=== PATIENT | female | born 1960 | race Caucasian/White ===

== ENCOUNTER 2018-08-19 17:27 | Emergency (ER) | payer OTHER, SELFPAY ==
[2018-08-19 17:31] VITALS: BP 126/64; PULSE 71; RESP 20; TEMP 36.5; O2SAT 97
--- NOTE | 2018-08-19 17:40 | DI.RAD_ITS ---
SYMPTOMS/DIAGNOSIS: PAIN S/P FALL RIGHT ANKLE: There is mild soft tissue swelling over the lateral malleolus. There is no evidence of a fracture or dislocation.
--- NOTE | 2018-08-19 17:41 | W.ED.GENAD ---
Discharge Plan Disposition Patient Disposition: HOME Condition: Stable Discharge Details Chief Complaint: Orthopedic Clinical Impression: Right ankle sprain Primary Care Provider: Parker Al ED Provider: Reji Wright Home Meds and New Rx's Prescriptions: No Action No Known Home Meds RF: 0 Discharge Instructions Instructions: Ankle Sprain (ED) Medical Decision Making PAtient here after she slipped on a step and inverted her right ankle and has pain over the right lateral malleolus. Denies hitting head or loc or precediing symptoms to the fall. HAs normal sensation and no pain over metatarsals, 2+ dp/pt pulses. Will xray to eval for fx. xray negative on my read, suspect sprain. If vrady doesn't see any fracture will treat as sprain Differential Diagnosis right ankle sprain vs fracture vs contusion Imaging Data Radiologic Study: Attestation: I personally reviewed and interpreted this imaging study as follows: Imaging: X-Ray My impression: no acute fractures HPI General Mode of arrival: wheelchair. Date/Time Provider Initiated Documentation: 08/19/18 17:37. Limitations to Documentation: no limitations. Information obtained by: patient. History of Present Illness 57 year old F presents to the emergency department with the chief complaint of right ankle pain, described as moderate, with intensity rated at 6. Quality is described as aching, and is localized to the right and lower extremity. Patient reports no radiation. Patient started experiencing this hour(s) (1) and it has been constant. Rest improves symptom(s), Movement worsens symptoms . Patient notes no other symptoms.. Patient did receive the following treatments prior to arrival, none Related Data Home Medications Medication Instructions Recorded Confirmed Unknown [No Known Home Meds] 08/19/18 08/19/18 Allergies Allergy/AdvReac Type Severity Reaction Status Date / Time No Known Allergies Allergy Unverified 08/19/18 17:33 General Stated Complaint: Orthopedic GREGORY: 3 Review of Systems Review of Systems All systems reviewed & are unremarkable except as noted in HPI and below Constitutional Denies chills, Denies fever(s) and Denies weakness Eyes Denies loss of vision ENT Denies change in voice Cardiovascular Denies chest pain and Denies dyspnea Respiratory Denies dyspnea Gastrointestinal Denies abdominal pain, Denies nausea and Denies vomiting Genitourinary Denies dysuria Musculoskeletal Denies joint swelling Integumentary/Breasts Denies rash Neurologic Denies loss of vision and Denies weakness Psychiatric Denies depression Allergic/Immunologic Denies urticaria PFSH Social History Smoking/Tobacco Use Status: Never Exam Const General: no acute distress Orientation: alert HENMT Head: normal to inspection Ears: external ears normal General nose exam: external nose normal Mouth: moist mucous membranes Eyes General: appearance normal, both eyes and all related structures Neck Neck: normal visual inspection Resp Effort & Inspection: normal respiratory effort and able to speak in complete sentences Cardio Rate: regular rate Skin General skin exam: no rashes or lesions noted Neuro General: alert and oriented x3 Extrem General: normal capillary refill Psych Mental Status: mental status grossly normal Course Vital Signs Temperature 36.5 C 08/19/18 17:31 Pulse 71 08/19/18 17:31 Respiratory Rate 20 08/19/18 17:31 Blood Pressure 126/64 08/19/18 17:31 Pulse Oximetry 97 08/19/18 17:31 Temperature 36.5 C 08/19/18 17:31 Temperature Source Temporal Artery Scan 08/19/18 17:31 Pulse 71 08/19/18 17:31 Respiratory Rate 20 08/19/18 17:31 Respiratory Effort Non-Labored 08/19/18 17:31 Blood Pressure 126/64 08/19/18 17:31 Pulse Oximetry 97 08/19/18 17:31 Oxygen Delivery Method Room Air 08/19/18 17:31 Oxygen Flow Rate 0 08/19/18 17:31 Pain Level 8 08/19/18 17:33
--- NOTE | 2018-08-19 17:44 | ED.GENADUL_ITS ---
Discharge Plan Disposition Patient Disposition: HOME Condition: Stable Discharge Details Chief Complaint: Orthopedic Clinical Impression: Right ankle sprain Primary Care Provider: Parker Al ED Provider: Reji Wright Home Meds and New Rx's Prescriptions: No Action No Known Home Meds RF: 0 Discharge Instructions Instructions: Ankle Sprain (ED) Medical Decision Making PAtient here after she slipped on a step and inverted her right ankle and has pain over the right lateral malleolus. Denies hitting head or loc or precediing symptoms to the fall. HAs normal sensation and no pain over metatarsals, 2+ dp/ pt pulses. Will xray to eval for fx. xray negative on my read, suspect sprain. If vrady doesn't see any fracture will treat as sprain Differential Diagnosis right ankle sprain vs fracture vs contusion Imaging Data Radiologic Study: Attestation: I personally reviewed and interpreted this imaging study as follows: Imaging: X-Ray My impression: no acute fractures HPI General Mode of arrival: wheelchair . Date/Time Provider Initiated Documentation: 08/19/18 17:37 . Limitations to Documentation: no limitations . Information obtained by: patient . History of Present Illness 57 year old F presents to the emergency department with the chief complaint of right ankle pain, described as moderate, with intensity rated at 6. Quality is described as aching, and is localized to the right and lower extremity. Patient reports no radiation. Patient started experiencing this hour(s) (1) and it has been constant. Rest improves symptom(s), Movement worsens symptoms . Patient notes no other symptoms.. Patient did receive the following treatments prior to arrival, none Related Data Home Medications Medication Instructions Recorded Confirmed Unknown [No Known Home Meds] 08/19/18 08/19/18 Allergies Allergy/AdvReac Type Severity Reaction Status Date / Time No Known Allergies Allergy Unverified 08/19/18 17:33 General Stated Complaint: Orthopedic GREGORY: 3 Review of Systems Review of Systems All systems reviewed & are unremarkable except as noted in HPI and below Constitutional Denies chills, Denies fever(s) and Denies weakness Eyes Denies loss of vision ENT Denies change in voice Cardiovascular Denies chest pain and Denies dyspnea Respiratory Denies dyspnea Gastrointestinal Denies abdominal pain, Denies nausea and Denies vomiting Genitourinary Denies dysuria Musculoskeletal Denies joint swelling Integumentary/Breasts Denies rash Neurologic Denies loss of vision and Denies weakness Psychiatric Denies depression Allergic/Immunologic Denies urticaria PFSH Social History Smoking/Tobacco Use Status: Never Exam Const General: no acute distress Orientation: alert HENMT Head: normal to inspection Ears: external ears normal General nose exam: external nose normal Mouth: moist mucous membranes Eyes General: appearance normal, both eyes and all related structures Neck Neck: normal visual inspection Resp Effort & Inspection: normal respiratory effort and able to speak in complete sentences Cardio Rate: regular rate Skin General skin exam: no rashes or lesions noted Neuro General: alert and oriented x3 Extrem General: normal capillary refill Psych Mental Status: mental status grossly normal Course Vital Signs Temperature 36.5 C 08/19/18 17:31 Pulse 71 08/19/18 17:31 Respiratory Rate 20 08/19/18 17:31 Blood Pressure 126/64 08/19/18 17:31 Pulse Oximetry 97 08/19/18 17:31 Temperature 36.5 C 08/19/18 17:31 Temperature Source Temporal Artery Scan 08/19/18 17:31 Pulse 71 08/19/18 17:31 Respiratory Rate 20 08/19/18 17:31 Respiratory Effort Non-Labored 08/19/18 17:31 Blood Pressure 126/64 08/19/18 17:31 Pulse Oximetry 97 08/19/18 17:31 Oxygen Delivery Method Room Air 08/19/18 17:31 Oxygen Flow Rate 0 08/19/18 17:31 Pain Level 8 08/19/18 17:33
[2018-08-19] MEDS: Ibuprofen 600 MG TAB (18:15)
--- NOTE | 2018-08-19 18:53 | DI.VRAD_ITS ---
EXAM: XR Right Ankle Complete, 3 or more Views EXAM DATE/TIME: 08/19/2018 5:42 PM CLINICAL HISTORY: 57 years old, female; Signs and symptoms; Other: Pain S/P fall TECHNIQUE: XR Right ankle 3 or more views. COMPARISON: No relevant prior studies available. FINDINGS: Bones/joints: No acute fracture. No dislocation. Degenerative changes in the tarsal bones Soft tissues: Lateral malleolar soft tissue swelling.. IMPRESSION: 1. Lateral malleolar soft tissue swelling.. 2. No acute fracture. 3. No dislocation. Dictated and Authenticated by: Leann Kiran MD. Ordering:BRENT ADAMS MD
== END 2018-08-19 19:06 | disposition home or self-care (01) ==
PROVIDERS: Emergency Provider Emergency Medicine; PCP Nurse Practitioner
DX: S93.401A Sprain of unspecified ligament of right ankle, initial encounter (principal); W10.8XXA Fall (on) (from) other stairs and steps, initial encounter
CPT/HCPCS: 29515; 99283; 73610; 99282; L1902

== ENCOUNTER 2020-03-03 18:54 | Emergency (ER) | payer OTHER, SELFPAY ==
[2020-03-03 18:58] VITALS: BP 155/77; PULSE 98; RESP 16; TEMP 36.7; O2SAT 98
--- NOTE | 2020-03-03 19:03 | ED.GENADUL_ITS ---
Discharge Plan Disposition Patient Disposition: HOME Condition: Stable Discharge Details Chief Complaint: EyeProblem Clinical Impression: Abrasion, corneal Primary Care Provider: Parker Al ED Provider: Brittani Turner Home Meds and New Rx's Prescriptions: New erythromycin 5 mg/gram (0.5 %) ointment 0.5 inch OP Q4H 7 Days Qty: 3.5 RF: 1 Discharge Instructions Instructions: Corneal Abrasion (ED) Additional Instructions: Use antibiotic eye ointment every 4 hours while awake as discussed for 1 week. Cool compresses if needed for comfort. Tylenol for comfort if needed. Sunglasses for comfort. Follow-up with [facility] care if not improving in 2 days or for reevaluation if desired. Return if needed sooner for any vision change, blurred vision, worsening eye p ain or concerns if needed. Referrals: [facility] [Outside] Medical Decision Making Is a 59-year-old patient presenting for acute right eye injury. Patient was trimming bushes and she had a branch strike her in the right eye. Patient reports immediate discomfort. Patient denies any vision change or blurred vision. Patient does report a very minimal 1 out of 10 headache and very mild nausea which she attributes to pain. Patient did report initially mild hearing and nasal congestion which has since improved. Patient does report mild foreign body sensation and right eye discomfort. Visual acuity reveals right eye 20/100, left 20/70. This is uncorrected as patient is not currently wearing her glasses. Patient reports this seems normal in her baseline. Patient had full resolution of pain with application of tetracaine topically. Is no identifiable foreign body in the eye. Patient does have obvious fluorescein dye uptake consistent with corneal abrasion. This is somewhat overlying her iris but not central over her pupil. Will apply topical antibiotics, provide dose here. Discussed use of antibiotic, conservative and supportive management. [facility] any persistence of pain lasting greater than 2 days and for follow-up to be sure abrasion has entirely improved patient presents plan of care. The patient was stable and requested discharge. Prior to discharge, my usual and customary return precautions were reviewed with the patient - this included follow-up instructions and reasons to return to the Emergency Department if conditions worsens, does not improve as expected, or other new concerns arise. HPI General Date/Time Provider Initiated Documentation: 03/03/20 18:55 . HPI Narrative: 59-year-old patient presents to the emergency room with complaints of right eye pain. Patient reports 1 hour prior to arrival she was trimming bushes and a thin branch of a pricker alvarez flung toward her and struck her right eye. Patient reports immediate discomfort. Patient reports some tearing and nasal discharge which has improved. Patient reports pain persists. Denies obvious vision change, blurred vision or double vision. Patient does report mild nausea and 1 out of 10 headache which she tributes discomfort. Patient denies use of blood thinner. Patient denies any other sites of pain or concerns. Patient does report a mild foreign body sensation. Denies any underlying eye problems. No other concerns or complaints at this time. Denies dizziness denies paresthesia, denies sore throat, nasal congestion, hearing change, discharge from the eye. Denies fevers or chills. Related Data Home Medications Medication Instructions Recorded Confirmed erythromycin 0.5 inch OP Q4H 7 Days #3.5 gm 03/03/20 Previous Rx's Medication Instructions Recorded erythromycin 0.5 inch OP Q4H 7 Days #3.5 gm 03/03/20 Allergies Allergy/AdvReac Type Severity Reaction Status Date / Time No Known Allergies Allergy Unverified 08/19/18 17:33 General Stated Complaint: EyeProblem GREGORY: 4 Review of Systems All systems reviewed & are unremarkable except as noted in HPI and below Eyes Eyes: Denies blind spots, Denies change in vision, Denies itchy eyes and Denies loss of vision Neurologic Neurologic: Denies loss of vision Allergic/Immunologic Allergic/Immunologic: Denies itchy eyes [facility] Social History Smoking/Tobacco Use Status: Never Drug use: Never Do you feel safe in your relationship?: Yes Exam Narrative Exam Narrative: CONST: Healthy appearing patient, in no acute distress. Well hydrated. Alert and oriented. HENMT: Head nomocephalic, normal to inspection. Atraumatic. Hearing grossly normal. EYES: General normal appearance. Alignment normal. Eyelids normal. Conjunctiva normal. PERRLA. Extraocular motions intact. No obvious foreign body identified beneath upper or lower lid. No obvious embedded foreign body. Patient with fluorescein dye uptake consistent with corneal abrasion noted small punctate area at approximately 3:00 to the and a linear abrasion noted overlying the iris at approximately 8-9 o'clock. Negative Chantell sign. funduscopic exam somewhat limited as patient is not dilated however does appear normal. NECK: Normal visual inspection. FROM. CHEST: Normal insepection of the chest. RESP: Normal respiratory effort. Speaking full sentences. No cough. No audible wheezing. No retractions. CARDIO: No JVD. SKIN: Normal. Dry. No rashes. NEURO: Alert and awake. Speech clear. PSYCH: Normal affect. Cooperative. Course Vital Signs Vital signs: Vital Signs Temperature 36.7 C 03/03/20 18:58 Pulse 98 H 03/03/20 18:58 Respiratory Rate 16 03/03/20 18:58 Blood Pressure 155/77 H 03/03/20 18:58 Pulse Oximetry 98 03/03/20 18:58 Temperature 36.7 C 03/03/20 18:58 Temperature Source Temporal Artery Scan 03/03/20 18:58 Pulse 98 H 03/03/20 18:58 Respiratory Rate 16 03/03/20 18:58 Respiratory Effort 03/03/20 19:01 Blood Pressure 155/77 H 03/03/20 18:58 Pulse Oximetry 98 03/03/20 18:58 Oxygen Delivery Method Room Air 03/03/20 18:58 Oxygen Flow Rate 0 03/03/20 18:58 Pain Level 1 03/03/20 18:58
[2020-03-03] MEDS: Tetracaine 0.5% 4 ML BTL OP (19:30)
[2020-03-03] MEDS: Erythromycin Ophth Oint 3.5 GM TUBE OU (19:30)
[2020-03-03] MEDS: Fluorescein STRIPS 100/BOX 1 MG OP (19:30)
[2020-03-03] MEDS: Balanced Salt Solution 15 ML BTL (19:31)
== END 2020-03-03 19:40 | disposition home or self-care (01) ==
PROVIDERS: Emergency Provider Physician Assistant; PCP Nurse Practitioner
DX: S05.01XA Injury of conjunctiva and corneal abrasion without foreign body, right eye, initial encounter (principal); W20.8XXA Other cause of strike by thrown, projected or falling object, initial encounter
CPT/HCPCS: 99283

== ENCOUNTER 2020-07-07 03:16 | Emergency (ER) | payer OTHER, SELFPAY ==
[2020-07-07 03:21] VITALS: BP 140/80; PULSE 78; RESP 16; TEMP 36.4; O2SAT 95
--- NOTE | 2020-07-07 03:22 | ED.GENADUL_ITS ---
Discharge Plan Disposition Patient Disposition: HOME Condition: Stable Discharge Details Chief Complaint: EyeProblem Clinical Impression: Abrasion of cornea, right Primary Care Provider: Parker Al ED Provider: Reji Wright Home Meds and New Rx's Prescriptions: No Action No Known Home Meds RF: 0 Discharge Instructions Instructions: Corneal Abrasion (ED) Additional Instructions: if you are not improving in 2-3 days follow up with your fruit or nut grower if you have severe worsening pain, decreased vision or fevers return to the emergency department Medical Decision Making 59 yo female states she went to bed feeling well and woke up and noticed her right eye had a burning sensation. Denies known trauma, fevers, and denies blurred vision or deep eye pain. Has no periorbital swelling, perrl, eomi. Has mild erythema of the conjunctiva or the right eye, left conjunctiva normal. Will place tetracaine and perform more detailed exam with fluorescein. 20/40 vision uncorrected in right eye and 20/30 in left eye no foreign body seen and none on undersurface of eyelids. Retina appears normal on exam. Had near immmediate relief of pain with application of tetracaine. On fluorescein staining has a very small corneal abrasion at the 3 oclock position of the conjunctiva otherwise unremarkable. Will place on erythromycin ointment and advised if she's not improving in 2-3 days to follow up with her fruit or nut grower of [facility] with return precautions given Differential Diagnosis Differential Diagnosis: conjunctivitis, corneal abrasion HPI General Mode of arrival: ambulatory . Date/Time Provider Initiated Documentation: 07/07/20 03:17 . Limitations to Documentation: no limitations . Information obtained by: patient . History of Present Illness 59 year old F presents to the emergency department with the chief complaint of right eyburning sensation, described as moderate, Patient started experiencing this hour(s) (2) and it has been constant. No relieving factors improve symptom(s), No exacerbating factors reported . Patient did receive the following treatments prior to arrival, none Related Data Home Medications Medication Instructions Recorded Confirmed Unknown [No Known Home Meds] 07/07/20 07/07/20 Allergies Allergy/AdvReac Type Severity Reaction Status Date / Time No Known Allergies Allergy Unverified 07/07/20 03:26 General GREGORY: 4 Review of Systems All systems reviewed & are unremarkable except as noted in HPI and below Constitutional Constitutional: Denies chills, Denies fever(s) and Denies weakness Cardiovascular Cardiovascular: Denies chest pain and Denies dyspnea Respiratory Respiratory: Denies cough and Denies dyspnea Gastrointestinal Gastrointestinal: Denies abdominal pain, Denies nausea and Denies vomiting Musculoskeletal Musculoskeletal: Denies joint swelling Integumentary/Breasts Skin/Breast: Denies rash Neurologic Neurologic: Denies weakness [facility] Medical History (Updated 07/07/20 @ 03:37 by Reji Wright MD) No acute medical problems Social History Smoking/Tobacco Use Status: Never Drug use: Never Do you feel safe in your relationship?: Yes Exam Const General: no acute distress Orientation: alert HENMT Head: normal to inspection Ears: external ears normal General nose exam: external nose normal Mouth: moist mucous membranes Eyes Alignment and Position: alignment normal Neck Neck: normal visual inspection Resp Effort & Inspection: normal respiratory effort and able to speak in complete sentences Cardio Rate: regular rate Skin General skin exam: no rashes or lesions noted Neuro General: patient alert and patient oriented x3 Extrem General: normal to inspection Psych Mental Status: mental status grossly normal
[2020-07-07] MEDS: Balanced Salt Solution 15 ML BTL OP (03:41)
[2020-07-07] MEDS: Tetracaine 0.5% 4 ML BTL OP (03:45)
[2020-07-07] MEDS: Erythromycin Ophth Oint 3.5 GM TUBE OP (03:45)
[2020-07-07] MEDS: Fluorescein STRIPS 100/BOX 1 MG (03:45)
== END 2020-07-07 03:44 | disposition home or self-care (01) ==
PROVIDERS: Emergency Provider Emergency Medicine; PCP Nurse Practitioner
DX: S05.01XA Injury of conjunctiva and corneal abrasion without foreign body, right eye, initial encounter (principal); X58.XXXA Exposure to other specified factors, initial encounter
CPT/HCPCS: 99283

== ENCOUNTER 2022-07-15 07:56 | Emergency (ER) | payer OTHER, SELFPAY ==
[2022-07-15 08:00] VITALS: BP 158/89; PULSE 97; RESP 18; TEMP 37.1; O2SAT 98
[2022-07-15] MEDS: Balanced Salt Solution 15 ML BTL (08:20)
[2022-07-15] MEDS: Fluorescein STRIPS 100/BOX 1 MG (08:20)
--- NOTE | 2022-07-15 08:24 | ED.GENADUL_ITS ---
Discharge Plan Disposition Patient Disposition: HOME Condition: Stable Discharge Details Clinical Impression: Impetigo Primary Care Provider: Unknown,Unknown ED Provider: Shira Cordova Home Meds and New Rx's Prescriptions: New cephalexin 500 mg capsule 500 mg PO Q6H 10 Days Qty: 40 0RF Discharge Instructions Instructions: Impetigo (ED) Additional Instructions: take antibiotics as prescribed yogurt daily while on antibiotics this is contagious, wash hands frequently and refrain from rubbing lesions likely 48 hours for notable improvement return with significant spreading rash, fever, eye pain, or with any new or worsening complaints Discharge Data Discharge Date/Time-TO BE ENTERED AT DEPARTURE: 07/15/22 08:32 Medical Decision Making appears infections/impetigo will treat with keflex recheck in 24-48 hours recommended return precautions discussed and pt expressed understanding HPI General Date/Time Provider Initiated Documentation: 07/15/22 08:01 . HPI Narrative: This 61-year-old female presents with rash on her lower lip that started on Saturday of last week. She states that its progressed over the past week and she now has some redness around her left eye. She denies any sensation of pain to her globe. She denies any drainage. She denies any fever or chills. She denies any known sick contacts. She denies her history of similar symptoms in the past. States that she did have a history of shingles and this presentation to her. She denies any difficulty swallowing, vision change, headache, or any additional complaints at this time. She is otherwise reportedly Related Data Home Medications Medication Instructions Recorded Confirmed cephalexin 500 mg capsule 500 mg PO Q6H 10 days #40 caps 07/15/22 Previous Rx's Medication Instructions Recorded cephalexin 500 mg capsule 500 mg PO Q6H 10 days #40 caps 07/15/22 Allergies Allergy/AdvReac Type Severity Reaction Status Date / Time No Known Allergies Allergy Unverified 07/15/22 08:04 General Stated Complaint: RashLesion GREGORY: 3 Review of Systems All systems reviewed & are unremarkable except as noted in HPI and below PFSH All Active Problems (Updated 07/15/22 @ 08:26 by GILMAR Roca) Impetigo (Acute) Medical History (Updated 07/15/22 @ 08:26 by GILMAR Roca) No acute medical problems Social History Smoking/Tobacco Use Status: Never Smoking risk assessment performed?: Yes Alcohol Intake: current Alcohol Intake frequency: a few times a month Alcohol type: wine Drug use: Never Substance use type: does not use Do you feel safe at home: Yes Do you feel safe in your relationship?: Yes Exam Const General: cooperative, comfortable and no acute distress [facility] Nose image: 1. honey crusted lesions 2. 3. Other: no rashes or lesions to intraoral region Eyes Other: left eye stained with fluorescein, no dendrite visualized EOMI Eyes/upper lids images: 1. erythema with superficial tenderness no crepitus or proptosis Course Vital Signs Vital signs: Vital Signs Temperature 37.1 C 07/15/22 08:00 Pulse 97 H 07/15/22 08:00 Respiratory Rate 18 07/15/22 08:00 Blood Pressure 158/89 H 07/15/22 08:00 Pulse Oximetry 98 07/15/22 08:00 Temperature 37.1 C 07/15/22 08:00 Temperature Source Temporal Artery Scan 07/15/22 08:00 Pulse 97 H 07/15/22 08:00 Respiratory Rate 18 07/15/22 08:00 Respiratory Effort Non-Labored 07/15/22 08:05 Blood Pressure 158/89 H 07/15/22 08:00 Blood Pressure Position Sitting 07/15/22 08:00 Pulse Oximetry 98 07/15/22 08:00 Oxygen Delivery Method Room Air 07/15/22 08:00 Oxygen Flow Rate 0 07/15/22 08:00 Pain Level 3 07/15/22 08:00 PAWSS Have you Been Recently Intoxicated or Drunk Within the Last 30 days?: No Have you Ever Experienced Previous Episodes of Alcohol Withdrawal?: No Have you ever Experienced Withdrawal Seizures?: No Have you ever Experienced Delirium Tremens(DT)s?: No Have you ever undergone Alcohol Rehabilitation Treatment (i.e, inpt ot outpatient treatment programs)?: No Have you ever Experienced Blackouts?: No Have you ever Combined Alcohol with other Downers within the last 90 days?: No Have you ever Combined Alcohol with any other Substance of Abuse during the last 90 days?: No Positive Blood Alcohol level on Presentation? [PCS.BAL]: No Evidence of Increased Autonomic Activity (i.e. HR>120, tremor, sweating, agitation, nausea)?: No Result: 0
[2022-07-15] MEDS: Cephalexin 500 MG CAP PO (08:30)
== END 2022-07-15 08:32 | disposition home or self-care (01) ==
PROVIDERS: Emergency Provider Physician Assistant
DX: L01.00 Impetigo, unspecified (principal); L53.9 Erythematous condition, unspecified
CPT/HCPCS: 99283

== ENCOUNTER 2024-10-29 10:40 | Outpatient (CLI) | payer BC, SELFPAY ==
--- NOTE | 2024-10-29 10:00 | DI.RAD_ITS ---
Exam(s) XR CHEST 2V PA LATERAL EXAM: XR CHEST 2V PA LATERAL CLINICAL HISTORY: Cough, R05.9; eval pna TECHNIQUE: 2D digital imaging was performed of the chest. Two images were obtained. PA and lateral views were obtained. COMPARISON: CR CHEST 2 VIEWS PA,LAT from 01/18/2018 FINDINGS: MEDIASTINUM: Normal. HEART: Normal. PULMONARY VASCULATURE: Normal. LUNGS: Clear. PLEURAL SPACE: No pleural effusion or pneumothorax. BONE:Within normal limits for the patient's age. OTHER FINDINGS:Normal. IMPRESSION: No acute pulmonary findings. DATA REPOSITORY: RADIATION DOSE DELIVERED:
--- OUTSIDE RECORDS SUMMARY | 2024-10-29 10:47 | XMS_ITS | Clinical Summary ---
Author Organization [facility] Address [address] [place] [address] Care Team Providers Care Business Analytics Manager Name Role Phone None, Provider Primary Care Provider Unavailabl e Allergies No known active allergies Medications No known medications Social History Tobacco Use Types Packs/Day Years Used Date Smoking Tobacco: Never Assessed Comments Unknown Sex and Gender Information Value Date Recorded Sex Assigned at Not on file Legal Sex Female 18:45 EDT Gender Identity Female 10/25/2022 9:06 EST Sexual Orientation Not on file Last Filed Vital Signs Vital Sign Reading Time Taken Comments Blood Pressure 122/80 10/24/2022 1421 EST Pulse 91 10/24/2022 1421 EST Temperature 36 ??C (96.8 ??F) 10/24/2022 1421 EST Respiratory Rate 16 10/24/2022 1421 EST Oxygen Saturation 98% 10/24/2022 1421 EST Inhaled Oxygen Concentration - - Weight - - Height - - Body Mass Index - - Plan of Treatment Health Maintenance Due Date Last Done Comments Hepatitis C Screen 1960 COVID-19 Vaccine (2023-25 season) 2024 RSV Immunization ( o r 60+ Years) (1 - 1-dose 75+ series) 2036 Insurance [facility] MEDICARE Care Teams Business Analytics Manager Relationship Specialty Start Date End Date None, Provider PCP - General 10/24/22
--- OUTSIDE RECORDS SUMMARY | 2024-10-29 10:47 | XMS_ITS | Referral Summary ---
Author Organization [facility] Address [address] [place] [address] Care Team Providers Care Food And Nutrition Professor Name Role Phone None, Provider Primary Care [...] Mass Index - - Plan of Treatment Not on file Insurance [facility] MEDICARE Care Teams Food And Nutrition Professor Relationship Specialty Start Date End Date None, Provider PCP - General 10/24/22
--- OUTSIDE RECORDS SUMMARY | 2024-10-29 10:47 | XMS_ITS | Encounter Summary ---
Author Organization [facility] Address [address] [place] [address] Care Team Providers Care Channel Rougher Name Role Phone None, Provider Primary Care Provider Unavailabl e Reason for Visit * Reason Comments Animal Bite Patient reports that she was bitten by a family members dog two days ago. Patient was bitten on her right hand. Encounter Details Date Type Department Care Team (Late st Contact Info) Description 10/24/2022 14:30 EST [facility] [address] [place] [id number] Ruth Fuller PA-C [address] [place] [address] [address] [place], [place] [id number] Dog bite of right upper extremity, initial encounter (Primary Dx); Infected wound Social History Tobacco Use Types Packs/Day Years Used Date Smoking Tobacco: Never Assessed Comments Unknown Sex and Gender Information Value Date Recorded Sex Assigned at Not on file Legal Sex Female 18:45 EDT Gender Identity Female 10/25/2022 9:06 EST Sexual Orientation Not on file documented as of this encounter Last Filed Vital Signs Vital Sign Reading Time Taken Comments Blood Pressure 122/80 10/24/2022 1421 EST Pulse 91 10/24/2022 1421 EST Temperature 36 ??C (96.8 ??F) 10/24/2022 1421 EST Respiratory Rate 16 10/24/2022 1421 EST Oxygen Saturation 98% 10/24/2022 1421 EST Inhaled Oxygen Concentration - - Weight - - Height - - Body Mass Index - - documented in this encounter Patient Instructions * Patient Instructions* Ruth Fuller PA-C - 10/24/2022 14:30 EST Rachana - You were seen today for the dog bite wound at your right wrist. This does appear to be infected. Not unusual for these sort of injuries. Please start the antibiotics I sent. Please compress/wrap for a few days. ELEVATE. This is the most important thing to improve healing/circulation If you can apply heat 2-3 times a day for 15 minutes this is helpful as well. Do also still wash 1-2 times daily with soap and water. Lastly - have a recheck with us if any worsening pain, redness, swelling, in particular pain with movement of the wrist and fingers. * Attachments The following attachments cannot be sent through Care Everywhere. * Bites: Animal (Tongan) documented in this encounter Ordered Prescriptions Prescription Sig Dispense Quantity Refills Last Filled Start Date End Date amoxicillin-clavul anate (AUGMENTIN) 875-125 mg per tablet Take 1 Tablet by mouth 2 times daily for 5 days. 10 Tablet 10/24/2022 10/29/2022 documented in this encounter Progress Notes * Supriya Nugent RN - 10/24/2022 1430 EST CC/HPI: Patient reports that she was bitten by a family members dog two days ago. Patient was bitten on her right hand. Covid Screening: In the last 72 hours, has the patient had: New or unusual cough, shortness of breath, new nasal congestion, sore throat, fever, chills, body aches, or new loss of taste or smell: No In the past 10 days, has the patient had a positive Covid test OR a confirmed close Covid exposure (<6ft for > 15mins in 24hr period)? (if yes, assign to [facility], regardless of vaccination status)-No PCP: No primary care provider on file. SUPRIYA NUGENT RN 10/24/2022 13:28 * Ruth Fuller PA-C - 10/24/2022 1430 EST [facility] Chief Complaint(s): Chief Complaint Patient presents with ??? Animal Bite Patient reports that she was bitten by a family members dog two days ago. Patient was bitten on herright hand. Assessment & Plan: There are no diagnoses linked to this encounter. Rachana Cabral is a pleasant 62 y.o. female who presents with chief complaint of increasing pain andredness at site of dog bite. History and physical exam most consistent with infection/mild cellulitis at puncture wound. Will have her start antibiotics, elevate, compress. Single 3 inch Jonel wrap placed by me with intactneurovascular status at fingers post placement. Td in last 6 years, I think is sufficient. An appropriate medical screening examination was performed. The patient was assessed prior to discharge and deemed stable for discharge home. I printed material and reviewed home management and follow up in detail with patient, see patient instructions below. Patient is advised in use of [employer] to access any lab results or other pertinentvisit information. All questions are answered. Patient is advised to follow up for urgent reassessment for any new/worsening signs and symptoms here at [facility] or with the ER. Otherwise, follow up with PCP or [facility] is advised for symptoms that persist past current course of treatment or expected resolution as discussed. Patient verbalizes understanding and agreement with this plan of care. HPI: Pt presents with hx dog known to her, bit her right forearm two days ago. Washed well that day with soap and water. Has been using topical antibiotics. Last 12-24 hours getting more red and tender about bite wound. Notes dog fully vaccinated. She has had td in last 6 years. Patient denies: Fevers, sweats, chills ROS: ROS See HPI for details Objective: Vitals and nursing notes reviewed Examination: BP 122/80 Pulse 91 Temp 36 ??C (96.8 ??F) Resp 16 SpO2 98% Physical Exam Constitutional: General: She is not in acute distress. Appearance: Normal appearance. Musculoskeletal: Comments: Right fore arm on inspection there is a single puncture wound to distal posterior; flex/ext of wrist and fingers with increased discomfort Skin: Comments: About a 4cm area diam erythema swelling and tenderness to palpation about puncture wound;no induration/firmness/sensation abscess beneath this; no streaking erythema proximally; wnl dorsalis pedis pulse Neurological: Mental Status: She is alert. Data reviewed with patient (past results): PMHx/pertinent labs/DI and pertinent recent OV's This note may be in part documented using [employer] dictation software. Please forgive any errors, omissions or typos that may result from use of dictation. documented in this encounter Plan of Treatment Not on file documented as of this encounter Visit Diagnoses Diagnosis Dog bite of right upper extremity, initial encounter- Primary Infected wound Posttraumatic wound infection not elsewhere classified documented in this encounter Care Teams Channel Rougher Relationship Specialty Start Date End Date None, Provider PCP - General 10/24/22 documented as of this encounter
== END 2024-10-29 11:00 ==
LOC: DI 10:41
PROVIDERS: PCP Nurse Practitioner Family; Visit Provider Nurse Practitioner Family
DX: R05.9 Cough, unspecified (principal)
CPT/HCPCS: 71046

== ENCOUNTER 2024-12-10 00:52 | Outpatient (CLI) | payer BC, SELFPAY ==
--- NOTE | 2024-12-10 06:00 | DI.MAMMO_ITS ---
Exam(s) MAMMO SCREENING EXAM: MAMMO SCREENING CLINICAL HISTORY: screening,Z12.39 TECHNIQUE: Bilateral full field digital CC and MLO mammographic images were obtained with 3D tomosyn thesis and utilizing computer aided detection (CAD). COMPARISON: This is a baseline examination. FINDINGS: Masses/Architectural Distortion: None seen. Microcalcifications: No suspicious pleomorphic-type are seen. Skin Thickening/Nipple Retraction: None. IMPRESSION: 1. No evidence for malignancy is seen at this time. 2. Unless there is more urgent need, screening mammography is recommended, as per [employer] [place] [employer] guidelines. BI-RADS Category 1 - Negative Breast Density - Category B - Scattered areas of fibroglandular density Breast density category C or D implies that the patient has dense breast tissue. Dense breast tissue is very common and is not abnormal but dense breast tissue can make it harder to find cancer on a ma mmogram. Also, dense breast tissue may increase their breast cancer risk. This information about the result of the mammogram report was provided to the patient to raise their awareness. Use this report when you speak with the patient about their risks for breast cancer, which includes their family hist ory. At that time, you may recommend for more screening tests (Ultrasound or MRI) as they might be us eful based on their risk. A negative radiographic report should not delay biopsy if a dominant or clinically suspicious mass is present. Up to ten percent of cancers are not identified on mammography. A negative report may reinforce clinical impression. Adenosis and dense breasts may obscure an underlying neoplasm. False positive reports average 6 to 10%. Patient will receive a letter notifying them of these results.
== END 2024-12-10 01:12 ==
LOC: DI 00:52
PROVIDERS: PCP Nurse Practitioner Family; Visit Provider Nurse Practitioner Family
DX: Z12.31 Encounter for screening mammogram for malignant neoplasm of breast (principal); R92.323 Mammographic fibroglandular density, bilateral breasts
CPT/HCPCS: 77063; 77067

== ENCOUNTER 2024-12-10 01:12 | Outpatient (CLI) | payer BC, SELFPAY ==
[2024-12-10 08:31] LABS: Abs Immature Grans 0.02 10^3/uL (0.0-0.06); Absolute Basophil Count 0.08 10^3/uL (0.0-0.2); Absolute Lymphocyte Count 2.46 10^3/uL (1.2-3.4); Absolute Monocyte Count 0.35 10^3/uL (0.1-0.8); Absolute Neutrophil Count 3.28 10^3/uL (1.2-6.7); Basophils % 1.3 %; Eosinophils % 1.6 %; HCT 42.6 % (36.0-46.0); HGB 13.5 g/dL (11.2-15.7); Immature Grans % 0.3 %; Lymphocytes % 39.1 %; MCH 29.9 pg (27.0-33.0); MCHC 31.7 % (32.0-36.0); MCV 95 fL (80-95); MPV 8.9 fL (8.0-11.0); Monocytes % 5.6 %; Neutrophils % 52.1 %; Platelet Count 357 10^3/uL (130-400); RBC 4.51 10^6/uL (3.93-5.22); RDW 13.9 % (11.7-14.6); RDW-SD 48.9 fL; WBC 6.29 10^3/uL (4.4-10.8)
[2024-12-10 09:29] LABS: ALT 26 U/L (14-59); AST 18 U/L (15-37); Albumin 3.7 g/dL (3.4-5.0); Alkaline Phosphatase 93 U/L (46-116); Anion Gap 4.8 mmol/L (3-11); BUN 21 mg/dL (7-18); Bilirubin, Total 0.32 mg/dL (0.2-1.0); CO2 32.2 mmol/L (21.0-32.0); CREATININE 0.8 mg/dL (0.55-1.02); Calcium 9.4 mg/dL (8.5-10.1); Calculated LDL 142 mg/dL (<100); Chloride 107 mmol/L (98-107); Cholesterol 241 mg/dL (<200); Estimated GFR 82.74 (mL/min/1.73m2); Glucose 98 mg/dL (74-106); HDL Cholesterol 64 mg/dL (40-60); Sodium 144 mmol/L (136-145); TSH (W/Ref FT4) 1.36 uIU/mL (0.36-3.74); Total Protein 7.6 g/dL (6.4-8.2); Triglyceride 177 mg/dL (<150)
[2024-12-10 14:46] LABS: Hemoglobin A1C 5.8 % (<5.7)
[2024-12-10 19:08] LABS: Hepatitis C Ab w Rflx HCV PCR Negative (Negative)
[2024-12-10 19:09] LABS: HIV-1/2 Ag & Ab Screen Negative (Negative)
[2024-12-10 19:14] LABS: HBs Antibody, Quant 7.9 mIU/mL (See Note); Hep B Surface Ab Negative (See Note); Hepatitis B Core Antibody Negative (Negative); Hepatitis B Surface Antigen Negative (Negative)
== END 2024-12-10 01:13 | disposition home or self-care (01) ==
PROVIDERS: PCP Nurse Practitioner Family; Visit Provider Nurse Practitioner Family
DX: Z00.00 Encounter for general adult medical examination without abnormal findings (principal); Z11.59 Encounter for screening for other viral diseases; Z11.4 Encounter for screening for human immunodeficiency virus [HIV]
CPT/HCPCS: 36415; 80053; 80061; 86704; 86706; 86803; 87340; 87389; 83036; 84443; 85025

== ENCOUNTER 2025-02-02 11:33 | Day surgery (SDC) | payer BC, SELFPAY ==
[2025-02-02 11:49] VITALS: BP 116/69; PULSE 75; RESP 17; TEMP 37; O2SAT 97
[2025-02-02] MEDS: Lactated Ringers 1,000 ML 80 ML IV (12:06)
--- NOTE | 2025-02-02 12:17 | ANES.PREOP_ITS ---
General Info Date of Service Date Performed: 02/02/25 Height: 5 ft 7.25 in Weight: 87.09 kg Body Mass Index (BMI): 29.8 Surgical Procedure: Operation Date: 02/02/25 13:35 Proposed Procedure Side Surgeon p Colonoscopy Bipin Sam MD Meds Allergies and Home Medications Allergies Allergy/AdvReac Type Severity Reaction Status Date / Time No Known Allergies Allergy Verified 02/01/25 13:19 Home Medication ?Medication ?Instructions ?Recorded bisacodyl 5 mg tablet,delayed 5 mg PO ONCE #4 tabs 01/21/25 release (Dulcolax (bisacodyl)) polyethylene glycol 3350 17 17 g PO ONCE #238 grams 01/21/25 gram/dose oral powder Current Visit Medications: Current Medications Generic Name Dose Route Start Last Admin Trade Name Freq PRN Reason Stop Dose Admin Ringer's Solution 1,000 mls @ 80 mls/hr 02/02/25 06:00 02/02/25 12:06 IV 02/02/25 23:59 80 mls/hr INFUSION RAINER Administration IV Miscellaneous Supplies 1 each 02/02/25 06:00 Iv Access IV 02/02/25 23:59 DIRECTED RAINER Sodium Chloride 0 ml 02/02/25 06:00 Normal Saline Flush 10 Ml Syr IV 02/02/25 23:59 PRN PRN Sodium Chloride 0 ml 02/02/25 06:00 Normal Saline 10 Ml Vial IJ 02/02/25 23:59 DIRECTED PRN Sterile Water 0 ml 02/02/25 06:00 Water,Injection,Sterile 10 Ml Vial IJ 02/02/25 23:59 DIRECTED PRN PFSH Active Problems Active Problems: Problem Status Onset Code Hyperlipidemia Chronic E78.5 Prediabetes Chronic R73.03 Interstitial cystitis Chronic N30.10 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 Medical History Medical History Herpes zoster Got right sided [place] Palsy from this Surgical History Surgical History (Updated 02/02/25 @ 11:54 by Annemarie Mahoney RN) History of colonoscopy S/P shoulder surgery Left bicep tendon repair H/O exploratory laparotomy S/P hysterectomy (~1999) for heavy bleeding H/O knee surgery Left knee meniscus repair Tobacco Smoking/Tobacco Use Status: Former Tobacco Use Passive smoking exposure: No Second hand exposure: Yes Alcohol Alcohol Intake: current Alcohol intake frequency: holidays/special occasions only Alcohol type: wine Substance Use Substance use: Never Substance use type: does not use Vital Signs and Lab Results Vital Signs Most Recent Vital Signs in EMR: Most Recent Vital Signs Temp Pulse Resp BP Pulse Ox 37.0 C 75 17 116/69 97 02/02/25 11:49 02/02/25 11:49 02/02/25 11:49 02/02/25 11:49 02/02/25 11:49 Lab Results Blood Type / Crossmatch: No Data to Display Complete Blood Count: No Data to Display Complete Metabolic Panel: No Data to Display Liver Function Panel: No Data to Display Coagulation Panel: No Data to Display Cardiac Panel: No Data to Display Arterial Blood Gas: No Data to Display Venous Blood Gas: No Data to Display Pancreas Panel: No Data to Display Thyroid Panel: No Data to Display Infectious Disease: No Data to Display Blood Cultures: No Data to Display Toxicology Panel: No Data to Display Anesthesia Assessment and Plan Anesthesia History Personal History: No History of Anesthesia Complications Family History: No Family History of Anesthesia Complications Exercise Tolerance Exercise Tolerance: Metabolic Equivalents>4 Pertinent Negatives Pertinent Negatives: No Symptoms of GERD Cardiac & Pulmonary Exam Cardiac Exam: Normal S1/S2 Heart Sounds Pulmonary Exam: Clear Bilateral Breath Sounds Implantable Cardiac Device Does patient have a Pacemaker or an ICD?: No Airway Exam Known Difficult Airway: No Mallampati Class: 2 Mouth Opening: Normal (> 3cm) Thyromental Distance: Greater than 3 cm Neck Range of Motion: Full ROM Neck Circumference: Normal Teeth Condition: Normal Dentition ASA Classification ASA Score: ASA 2 Emergency Case?: No NPO Status NPO Status: NPO Clears >2 hours, Solids >8 hours Anesthesia Plan Resuscitation Status: Full Code Anesthesia Technique: General Anesthesia Airway Planned: Natural Airway Monitors Used: Standard Monitors
[2025-02-02 12:19] VITALS: BMI 29.8
--- NOTE | 2025-02-02 12:34 | W.COLOREPORT ---
Date of service: 02/02/25 Time of Service: 12:34 Colonoscopy Report Procedure Description: PROCEDURES PERFORMED: 1. Colonoscopy PREOPERATIVE DIAGNOSIS: Screening colonoscopy POSTOPERATIVE DIAGNOSIS: Grade 1 internal hemorrhoids SURGEON: Alex Sam MD INDICATION FOR PROCEDURE: the patient is a 64-year-old woman who does not have any symptoms of concern. She is due for her first screening colonoscopy. She reports she had a colonoscopy when she was a child - she does not remember any of the results from the last but thinks/assumes it was normal. No family history of colon cancer. FINDINGS: Normal terminal ileum. No polyps anywhere. No inflammation anywhere. No obvious diverticular disease. She has mild grade 1 internal hemorrhoids and 1 external hemorrhoid. SURVEILLANCE interval/FOLLOW-UP: 10 years SPECIMENS: None EBL: Minimal COMPLICATIONS: None QUALITY of prep: Excellent Procedure in detail: The patient gave written consent and was in agreement with the indications, the potential risks as well as the benefits of the procedure. They were taken to the endoscopy suite and laid in the left lateral decubitus position. A timeout was performed and anesthesia was administered which was tolerated well. I started the procedure. Digital rectal and visual examination was performed and grossly within normal limits. A well-lubricated flexible colonoscope was then introduced and passed without any notable difficulty all the way to the cecum identified by the ileocecal valve and the appendiceal orifice. The terminal ileum was intubated and looked normal. The scope was then slowly withdrawn with the above-noted findings. The patient tolerated the procedure well and was taken to the PACU in hemodynamically stable condition.
--- NOTE | 2025-02-02 12:34 | W.PM.DSUDISC ---
Date of service: 02/02/25 Discharge Plan Disposition Patient Disposition: Home Condition: Good Discharge Details Attending Provider: Bipin Sam Primary Care Provider: Jeanne Huber Home Meds and New Rx's Prescriptions: No Action bisacodyl [Dulcolax (bisacodyl)] 5 mg tablet,delayed release (DR/EC) 5 mg PO ONCE Qty: 4 0RF Rx Instructions: Take per colonoscopy instructions provided by ordering providers office polyethylene glycol 3350 17 gram/dose powder 17 g PO ONCE Qty: 238 0RF Rx Instructions: Take per colonoscopy instructions provided by ordering providers office Discharge Instructions Additional Instructions: FINDINGS: No polyps. No colon cancer. Some minimal hemorrhoid disease is present which is extremely common, benign and nothing needs to be done about it. Repeat a colonoscopy in 10 years. Stand Alone Forms: Anesthesia Discharge Inst., Colonoscopy Post Instructions, Joleen To (DSU) Activity:: Activity as Tolerated Diet:: As Tolerated Discharge Orders Discharge Orders: Discharge Order (Routine); Ordered 02/02/25 Ordered By: Bipin Sam
[2025-02-02 13:01] VITALS: BP 113/72; PULSE 72; RESP 16; TEMP 36; O2SAT 97
[2025-02-02 13:19] VITALS: BP 106/72; PULSE 76; RESP 16; TEMP 36.2; O2SAT 97
--- NOTE | 2025-02-02 14:35 | W.ANESPOSTOP ---
Postoperative Evaluation Date, Time and Location Date Performed: 02/02/25 Time Performed: 13:03 Patient Location: Day Surgery Unit Vital Signs Most Recent Imported Vital Signs: Most Recent Vital Signs Temp Pulse Resp BP Pulse Ox 36.2 C L 76 16 106/72 97 02/02/25 13:19 02/02/25 13:19 02/02/25 13:19 02/02/25 13:19 02/02/25 13:19 Pain Score Most Recent Pain Score: Most Recent Pain Score Pain Level 0 02/02/25 13:19 Assessment Mental Status: Awake (Alert & Oriented to Patient Baseline) Airway and Respiratory Function: Patent airway with normal (patient baseline) respiratory exam Cardiovascular Function: Hemodynamically Stable Hydration Status: Adequately Hydrated Nausea & Vomiting: No Nausea or Vomiting Pain: Pt. Denies Any Pain Peripheral Nerve Block: Patient did not receive a nerve block
== END 2025-02-02 13:46 | disposition home or self-care (01) ==
LOC: SUR 11:33
PROVIDERS: PCP Nurse Practitioner Family; Visit Provider Student in an Organized Health Care Education/Training Program
PROC: 0DJD8ZZ Inspection of Lower Intestinal Tract, Via Natural or Artificial Opening Endoscopic (ICD-10-PCS; CPT 45378; principal; 2025-02-02 13:30)
DX: Z12.11 Encounter for screening for malignant neoplasm of colon (principal); K64.0 First degree hemorrhoids
CPT/HCPCS: 45378; J2003; J2405; J2704

== ENCOUNTER 2025-05-24 19:21 | Outpatient (CLI) | payer BC, SELFPAY ==
--- NOTE | 2025-05-24 19:45 | DI.RAD_ITS ---
Exam(s) XR KNEE LT 4V AP,LAT,ELLIOT,PAT EXAM: XR KNEE LT 4V AP,LAT,ELLIOT,PAT CLINICAL HISTORY: evaluate pathology, left knee pain M25.562. TECHNIQUE: 2D digital imaging was performed of the left knee. Four images were obtained. Merchant,AP, lateral and PA tunnel views were obtained. COMPARISON: CR LEFT KNEE 3 VIEW COMPLETE from 12/30/2017 FINDINGS: BONES: No acute fracture is present. No bony destructive lesion is seen. JOINTS: Small osteophytes are seen in both the medial lateral femoral tibial joint. The joint spaces are otherwise well maintained. No joint effusion is seen. No loose body. SOFT TISSUE: Normal. IMPRESSION: 1. There are mild degenerative changes seen in the left knee. 2. There is no acute fracture or dislocation. 3. The preliminary [facility] report was reviewed. DATA REPOSITORY: RADIATION DOSE DELIVERED:
--- NOTE | 2025-05-24 21:25 | DI.[facility]_ITS ---
PROCEDURE INFORMATION: Exam: XR Left Knee Exam date and time: 05/24/2025 7:54 PM Age: 64 years old Clinical indication: Other: Evaluate pathology, left knee pain TECHNIQUE: Imaging protocol: Radiologic exam of the left knee. Views: 4 or more views. COMPARISON: No relevant prior studies available. FINDINGS: Bones/joints: Mild degenerative changes. No acute fracture or dislocation Soft tissues: Normal. IMPRESSION: No acute findings. Dictated and Authenticated by: Kelby Negron MD. Orderin Yassine Hauser MD
== END 2025-05-24 19:41 ==
LOC: DI 19:21
PROVIDERS: PCP Nurse Practitioner Family; Visit Provider Nurse Practitioner Family
DX: M17.12 Unilateral primary osteoarthritis, left knee (principal)
CPT/HCPCS: 73564